=== PATIENT | female | born 1975 | race Caucasian/White ===

== ENCOUNTER 2018-03-28 10:30 | Inpatient (IN) | payer OTHER ==
[~2018-03-28] VITALS: Ht 152.4 cm; Wt 76.7 kg
[2018-03-28] MEDS ORDERED: INTEGRA PLUS C1 EACH PO (12:17)
[2018-04-04] MEDS ORDERED: OXYC1TAB9 PO (06:26)
[2018-04-04] MEDS ORDERED: MAXFE CAPLET1 EACH PO (06:26)
[2018-04-04] MEDS ORDERED: LEVSIN/SL0.125 MG PO (06:26)
[2018-04-04] MEDS ORDERED: CIPRO500 MG PO (06:26)
== END 2018-04-04 07:37 | disposition home or self-care (01) | DRG 743 ==
LOC: OB/GYN 04-02 07:00 → O/R 04-02 07:00 → SURG 04-02 10:30 → OB/GYN 04-02 14:27
PROVIDERS: Obstetrics & Gynecology Gynecology
PROC: 0UT70ZZ Resection of Bilateral Fallopian Tubes, Open Approach (ICD-10-PCS; 2018-04-02)
PROC: 0UT90ZZ Resection of Uterus, Open Approach (ICD-10-PCS; principal; 2018-04-02 12:15)
DX: D25.1 Intramural leiomyoma of uterus (principal); N80.0 Endometriosis of uterus; N92.0 Excessive and frequent menstruation with regular cycle; I10 Essential (primary) hypertension